=== PATIENT | female | born 1965 | race African-American/Black ===

== ENCOUNTER → 2017-03-08 | Outpatient (CLI) | payer BC ==
[~2017-03-08] MED LIST: NAPR220C15 PO
[2017-03-08 08:00] LABS: EOSINOPHILS % 2.1 % (0.0-5.0); HEMATOCRIT. 42.1 % (36.0-48.0); HEMOGLOBIN. 14.5 g/dL (12.0-16.0); LYMPHOCYTES % 32.7 % (20.0-50.0); MEAN CORPUSCULAR VOLUME 92.9 fL (81.0-99.0); MEAN PLATELET VOLUME 8.5 fl (7.4-10.4); MONOCYTES % 11.8 % (2.0-8.0); NEUTROPHILS % 52.4 % (40.0-76.0); PLATELET 286 x1000/uL (130-400); RED BLOOD CELL COUNT 4.53 mill/uL (4.2-5.4); RED CELL DISTRIBUTION WIDTH 13.5 % (11.6-14.6)
[2017-03-08 08:43] LABS: CARBON DIOXIDE 32 mEq/L (21-32); CHLORIDE 106 mEq/L (98-107); HDL CHOLESTEROL 44 mg/dL (40-59); LDL CHOLESTEROL 170 mg/dL (5-100)
== END | disposition home or self-care (01) ==
LOC: LAB 05:24
PROVIDERS: ATTEND Obstetrics & Gynecology Obstetrics
DX: E78.00 Pure hypercholesterolemia, unspecified (principal); E55.9 Vitamin D deficiency, unspecified; E03.9 Hypothyroidism, unspecified; D64.9 Anemia, unspecified
CPT/HCPCS: 36415; 80053; 80061; 82306; 83036; 84443; 85025

== ENCOUNTER → 2017-04-05 | Outpatient (CLI) | payer BC | END | disposition home or self-care (01) | LOC: MAMMO 05:44 | PROVIDERS: ATTEND Obstetrics & Gynecology Obstetrics | DX: D24.2 Benign neoplasm of left breast (principal); D24.1 Benign neoplasm of right breast | CPT/HCPCS: 76642 ==

== ENCOUNTER → 2017-04-24 | Outpatient (CLI) | payer BC | END | disposition home or self-care (01) | LOC: MAMMO 06:28 | PROVIDERS: ATTEND Obstetrics & Gynecology Obstetrics | DX: R92.8 Other abnormal and inconclusive findings on diagnostic imaging of breast (principal) | CPT/HCPCS: 77066 ==

== ENCOUNTER → 2019-12-04 | Outpatient (CLI) | payer BC ==
[2019-12-04 08:23] LABS: BASOPHILS % 0.6 % (0.0-2.0); EOSINOPHILS % 2.4 % (0.0-5.0); HEMOGLOBIN. 13.2 g/dL (12.0-16.0); LYMPHOCYTES % 28.7 % (20.0-50.0); MEAN CORPUSCULAR HEMOGLOBIN 32.1 pg (28.0-32.0); MEAN CORPUSCULAR VOLUME 94.4 fL (81.0-99.0); MEAN PLATELET VOLUME 8.8 fl (7.4-10.4); NEUTROPHILS % 57.3 % (40.0-76.0); PLATELET 271 x1000/uL (130-400); RED BLOOD CELL COUNT 4.13 mill/uL (4.2-5.4); RED CELL DISTRIBUTION WIDTH 14.1 % (11.6-14.6)
[2019-12-04 08:40] LABS: CHLORIDE 108 mEq/L (98-107)
[2019-12-04 08:49] LABS: LDL CHOLESTEROL 159 mg/dL (5-100)
[2019-12-04 08:51] LABS: HDL CHOLESTEROL 37 mg/dL (40-59); T4 FREE 0.98 ng/dL (0.76-1.46)
== END | disposition home or self-care (01) ==
LOC: LAB 06:49
PROVIDERS: ATTEND Internal Medicine
DX: E11.9 Type 2 diabetes mellitus without complications (principal); E78.00 Pure hypercholesterolemia, unspecified; Z79.4 Long term (current) use of insulin
CPT/HCPCS: 36415; 80053; 80061; 83036; 84439; 84443; 85025

== ENCOUNTER → 2020-02-03 | Outpatient (CLI) | payer BC | END | disposition home or self-care (01) | LOC: LAB 07:06 | PROVIDERS: ATTEND Obstetrics & Gynecology Obstetrics | DX: Z01.812 Encounter for preprocedural laboratory examination (principal); Z20.828 Contact with and (suspected) exposure to other viral communicable diseases | CPT/HCPCS: C9803; U0003 ==

== ENCOUNTER → 2020-02-05 | Outpatient (CLI) | payer BC | END | disposition home or self-care (01) | LOC: MAMMO 06:01 | PROVIDERS: ATTEND Obstetrics & Gynecology Obstetrics | DX: Z12.31 Encounter for screening mammogram for malignant neoplasm of breast (principal) | CPT/HCPCS: 77067 ==

== ENCOUNTER → 2021-02-10 | Outpatient (CLI) | payer BC | END | disposition home or self-care (01) | LOC: MAMMO 05:46 | PROVIDERS: ATTEND Obstetrics & Gynecology Obstetrics | DX: Z12.31 Encounter for screening mammogram for malignant neoplasm of breast (principal); N64.89 Other specified disorders of breast | CPT/HCPCS: 77063; 77067 ==

== ENCOUNTER → 2021-03-24 | Outpatient (CLI) | payer BC ==
[2021-03-24 07:49] LABS: BASOPHILS % 0.6 % (0.0-2.0); EOSINOPHILS % 2.9 % (0.0-5.0); HEMATOCRIT. 39.3 % (36.0-48.0); HEMOGLOBIN. 13.1 g/dL (12.0-16.0); LYMPHOCYTES % 33.1 % (20.0-50.0); MEAN PLATELET VOLUME 8.4 fl (7.4-10.4); MONOCYTES % 11.5 % (2.0-8.0); NEUTROPHILS % 51.9 % (40.0-76.0); PLATELET 271 x1000/uL (130-400); RED BLOOD CELL COUNT 4.23 mill/uL (4.2-5.4); RED CELL DISTRIBUTION WIDTH 13.8 % (11.6-14.6)
[2021-03-24 07:58] LABS: CHLORIDE 111 mEq/L (98-107)
[2021-03-24 08:08] LABS: LDL CHOLESTEROL 177 mg/dL (5-100)
[2021-03-24 08:10] LABS: HDL CHOLESTEROL 47 mg/dL (40-59)
== END | disposition home or self-care (01) ==
LOC: LAB 05:28
PROVIDERS: ATTEND Obstetrics & Gynecology Obstetrics
DX: Z13.0 Encounter for screening for diseases of the blood and blood-forming organs and certain disorders involving the immune mechanism (principal); Z13.220 Encounter for screening for lipoid disorders; Z13.228 Encounter for screening for other metabolic disorders; Z13.29 Encounter for screening for other suspected endocrine disorder; Z13.1 Encounter for screening for diabetes mellitus
CPT/HCPCS: 36415; 80053; 80061; 83036; 84443; 85025

== ENCOUNTER → 2024-01-31 | Outpatient (CLI) | payer BC | END | disposition home or self-care (01) | LOC: MAMMO 04:51 | PROVIDERS: ATTEND Obstetrics & Gynecology Obstetrics | DX: Z12.31 Encounter for screening mammogram for malignant neoplasm of breast (principal) | CPT/HCPCS: 77063; 77067 ==

== ENCOUNTER → 2024-09-30 | Outpatient (CLI) | payer BC | END | disposition home or self-care (01) | LOC: CT 03:44 | PROVIDERS: ATTEND Internal Medicine | DX: S06.0XAA Concussion with loss of consciousness status unknown, initial encounter (principal); M47.812 Spondylosis without myelopathy or radiculopathy, cervical region; M50.21 Other cervical disc displacement, high cervical region; M48.03 Spinal stenosis, cervicothoracic region; M25.78 Osteophyte, vertebrae; X58.XXXA Exposure to other specified factors, initial encounter; Y93.89 Activity, other specified; Y92.89 Other specified places as the place of occurrence of the external cause; Y99.8 Other external cause status ==

== ENCOUNTER → 2024-10-12 | Outpatient (CLI) | payer BC ==
[2024-10-12 08:15] LABS: BASOPHILS % 0.6 % (0.0-2.0); EOSINOPHILS % 2.7 % (0.0-5.0); HEMATOCRIT. 41.0 % (36.0-48.0); HEMOGLOBIN. 13.8 g/dL (12.0-16.0); LYMPHOCYTES % 32.6 % (20.0-50.0); MEAN PLATELET VOLUME 8.8 fl (7.4-10.4); MONOCYTES % 10.7 % (2.0-8.0); NEUTROPHILS % 53.4 % (40.0-76.0); PLATELET 272 x1000/uL (130-400); RED BLOOD CELL COUNT 4.34 mill/uL (4.2-5.4); RED CELL DISTRIBUTION WIDTH 14.2 % (11.6-14.6)
[2024-10-12 08:32] LABS: CREATININE 0.9 mg/dL (0.6-1.0); TRIGLYCERIDE 210 mg/dL (0-150); UREA NITROGEN BLOOD 15 mg/dL (9-23)
[2024-10-12 08:33] LABS: LDL CHOLESTEROL 185 mg/dL (5-100)
[2024-10-12 08:34] LABS: ASPARTATE AMINOTRANSFERASE 14 IU/L (<34); BILIRUBIN DIRECT 0.1 mg/dL (<=3.0); BILIRUBIN TOTAL 0.5 mg/dL (0.1-1.0); PROTEIN TOTAL 7.2 g/dL (6.0-8.3)
[2024-10-12 08:36] LABS: T4 FREE 1.08 ng/dL (0.89-1.76)
[2024-10-12 08:37] LABS: VITAMIN B12 SERUM 792 pg/mL (211-911)
[2024-10-13 06:12] LABS: VITAMIN D 25-OH 21.5 ng/mL (30.0-100.0)
[2024-10-13 08:08] LABS: T4 THYROXINE 6.9 ug/dL (4.5-12.0)
== END | disposition home or self-care (01) ==
LOC: LAB 03:42
PROVIDERS: ATTEND Internal Medicine
DX: R51.9 Headache, unspecified (principal)
CPT/HCPCS: 36415; 80053; 80061; 80076; 82306; 82607; 83036; 84436; 84439; 84443; 84481; 85025